=== PATIENT | female | born 1960 | race African-American/Black ===

== ENCOUNTER 2017-12-07 09:05 | Day surgery (SDC) | payer OTHER ==
[2017-12-06 15:12] VITALS: BMI 32.1
[2017-12-07] MEDS ORDERED: PROPOFOL 20 ML ONE (09:42)
[2017-12-07 10:15] VITALS: TEMP 97.9
[2017-12-07 13:42] VITALS: BP 126/60; PULSE 63
== END 2017-12-07 11:25 | disposition home or self-care (01) ==
LOC: JASU-ENDO 09:05
PROVIDERS: ATTEND Internal Medicine Gastroenterology
PROC: 0DJD8ZZ Inspection of Lower Intestinal Tract, Via Natural or Artificial Opening Endoscopic (ICD-10-PCS; principal; 2017-12-07 10:45)
DX: Z12.11 Encounter for screening for malignant neoplasm of colon (principal); Z86.010 Personal history of colon polyps
CPT/HCPCS: 82962

== ENCOUNTER 2018-02-21 17:27 | Inpatient (IN) | payer OTHER ==
--- NOTE | 2018-02-21 17:44 | PDOC ---
Rapid Medical Evaluation Time Seen by Provider: 02/21/18 17:41 Medical Evaluation: Allergies Allergy/AdvReac Type Severity Reaction Status Date / Time No Known Allergies Allergy Verified 12/05/14 19:08 02/21/18 17:41 I have performed a brief in-person evaluation of this patient. The patient presents with a chief complaint of: "walking is not steady and my BP is high" since wednesday, +headache, "when i'm walking i feel like i'm going to fall down", "a little slurred speech yesterday", "i just came from Dr. Grimes's office" Pertinent physical exam findings: no focal neuro deficits I have ordered the following: labs The patient will proceed to the ED for further evaluation. Discharge Disposition - Diagnosis Weakness - Referrals Referrals: Anushka Brown MD [Primary Care Provider] - - Patient Instructions - Post Discharge Activity
[2018-02-21 18:38] LABS: BASO % 1.2 % (0-2.0); EOS % 1.7 % (0-4.5); HEMATOCRIT 40.5 % (32.4-45.2); HEMOGLOBIN 13.2 GM/dL (10.7-15.3); LYMPH % 34.6 % (8-40); MCH 26.8 pg (25.7-33.7); MCHC 32.7 g/dl (32.0-36.0); MEAN CELL VOLUME 81.9 fl (80-96); MEAN PLT VOLUME 8.2 fl (7.5-11.1); MONO % 4.3 % (3.8-10.2); NEUT % 58.2 % (42.8-82.8); PLATELET COUNT 280 K/MM3 (134-434); RBC 4.94 M/mm3 (3.60-5.2); RDW 16.1 % (11.6-15.6); WHITE BLOOD COUNT 9.2 K/mm3 (4.0-10.0)
[2018-02-21 18:46] LABS: INR 0.99 (0.82-1.09); PROTHROMBIN TIME (PATIENT) 11.2 SEC (9.7-13.0)
[2018-02-21 19:26] LABS: ALBUMIN 3.6 g/dl (3.4-5.0); ANION GAP 8 (8-16); BILIRUBIN,TOTAL 0.3 mg/dL (0.2-1.0); BLOOD UREA NITROGEN 15 mg/dL (7-18); CALCIUM 8.7 mg/dL (8.5-10.1); CHLORIDE 107 mmol/L (98-107); CO2 26 mmol/L (21-32); CREATININE 0.8 mg/dL (0.55-1.02); GLUCOSE,RANDOM 124 mg/dL (74-106); POTASSIUM 3.4 mmol/L (3.5-5.1); SGOT/AST 12 U/L (15-37); SGPT/ALT 19 U/L (12-78); SODIUM 141 mmol/L (136-145); TOT PROT 7.4 g/dl (6.4-8.2)
[2018-02-21 19:28] LABS: ALK PHOS 95 U/L (45-117)
--- NOTE | 2018-02-21 20:09 | PDOC ---
History of Present Illness - General History Source: Patient Exam Limitations: No Limitations - History of Present Illness Initial Comments: 02/22/18 00:20 The patient is a 57 year old female, with a significant past medical history of HTN, HLD, DM who presents to the emergency department with loss of balance and speech changes two days ago. Patient reports kneeling down by her bed to pray when she suddenly noticed her speech was slow. Patient walked to the bathroom and felt off balance. Patient reports going to sleep and woke up the next morning with slight improvement of her symptoms. Patient was seen at PCP office however was sent to the ED for further evaluation. Currently in the ED, patient reports she is feeling much better, but notes that when she speaks quickly it seems a bit off. Pt went to her PMDs office today who referred her to the ED for evaluation. Patient denies any weakness, tingling, numbness in extremities. Patient denies any vision changes, blurred vision or double vision. Patient denies chest pain, palpitations, diaphoresis, headache or dizziness. Patient denies fever, chills, abdominal pain, nausea, vomit, diarrhea or constipation. Patient denies dysuria, frequency, urgency or hematuria. Patient denies sick contacts or recent travel. Allergies: NKA Past surgical history: None Social history: denies etoh, smoking, recreational drug use PCP: Dr. Brown <Pushpa Faulkner - Last Filed: 02/22/18 00:20> <Quentin Aponte - Last Filed: 02/22/18 00:45> - General Chief Complaint: CVA/TIA Stated Complaint: SENT BY PCP Time Seen by Provider: 02/21/18 17:41 NIH Stroke Scale - Last Known Well Date/Time & Onset Date Last Known Well: 02/19/18 Time Last Known Well: 19:00 - Initial Evaluation Level of consciousness: Alert Ask patient the month and their age: Answers both correctly Ask patient to open & close eyes; make fist and let go: Obeys both correctly Best gaze (horizontal eye movement): Normal Visual field testing: No visual field loss Facial paresis (Show teeth/raise eyebrows/close eyes tight): Normal symmetrical movement Motor Function: Left Arm: Normal Motor Function: Right Arm: Normal (extends arm 90 (or 45) degrees for 10 seconds without drift Motor Function: Left Leg: Normal (extends leg 30 degrees for 5 seconds without drift) Motor Function: Right Leg: Normal (extends leg 30 degrees for 5 seconds without drift) Limb Ataxia: No ataxia Sensory(Use pinprick test arms,legs,trunk,face/side to side): Normal Best language (Describe picture, name items, read sentences): No Aphasia Dysarthria (read several words): Normal articulation Extinction and Inattention: No abnormality - Total Score NIH Stroke Scale Score: 0 <Quentin Aponte - Last Filed: 02/22/18 00:45> Past History <Pushpa Faulkner - Last Filed: 02/22/18 00:20> - Past Medical History Anemia: No Asthma: Yes Cancer: No Cardiac Disorders: No CVA: No COPD: No CHF: No DVT: No Dementia: No Diabetes: Yes GI Disorders: No Disorders: No HTN: Yes Hypercholesterolemia: No Liver Disease: No Seizures: No Thyroid Disease: No - Surgical History Abdominal Surgery: No Appendectomy: No Cardiac Surgery: No Cholecystectomy: No Lung Surgery: No Neurologic Surgery: No Orthopedic Surgery: No - Immunization History Immunization Up to Date: Yes - Suicide/Smoking/Psychosocial Hx Smoking History: Never smoked Have you smoked in the past 12 months: No Information on smoking cessation initiated: No Hx Alcohol Use: No Drug/Substance Use Hx: No Substance Use Type: None Hx Substance Use Treatment: No <Quentin Aponte - Last Filed: 02/22/18 00:45> - Past Medical History Allergies/Adverse Reactions: Allergies Allergy/AdvReac Type Severity Reaction Status Date / Time No Known Allergies Allergy Verified 02/21/18 17:41 Home Medications: Ambulatory Orders Metoprolol Succinate [Toprol XL -] 200 mg PO BID 12/05/14 Simvastatin [Zocor -] 20 mg PO HS 12/05/14 Sitagliptin Phos/Metformin HCl [Janumet 50-1,000 mg Tablet] 1 tab PO BID Aspirin 81 mg PO DAILY 12/06/17 Canagliflozin [Invokana] 100 mg PO DAILY 12/06/17 Insulin Lispro [Humalog] 8 unit SQ TID 12/06/17 Nifedipine 10 mg PO DAILY 12/06/17 Valsartan 40 mg PO DAILY 12/06/17 Review of Systems - Review of Systems Able to Perform ROS?: Yes Comments:: 02/22/18 00:20 All other systems reviewed and are negative except noted in HPI <Pushpa Faulkner - Last Filed: 02/22/18 00:20> *Physical Exam - Vital Signs Last Vital Signs Temp Pulse Resp BP Pulse Ox 98.0 F 71 18 148/84 100 02/21/18 17:42 02/21/18 17:42 02/21/18 17:42 02/21/18 17:42 02/21/18 17:42 - Physical Exam Comments: 02/22/18 00:20 GENERAL: The patient is awake, alert, and fully oriented, Nontoxic - in no acute distress. HEAD: Normocephalic, atraumatic. EYES: extraocular movements intact, sclera anicteric, conjunctiva clear. ENT: Normal voice, Moist mucous membranes. NECK: Normal range of motion, No JVD LUNGS: Breath sounds equal, clear to auscultation bilaterally. No wheezes, no rhonchi, no rales. HEART: Regular rate and rhythm, normal S1 and S2 without murmur, rub or gallop. ABDOMEN: Soft, nontender, normoactive bowel sounds. No guarding, no rebound. No masses. No CVA tenderness EXTREMITIES: Normal range of motion, no edema. No clubbing or cyanosis. No cords , erythema, or tenderness. NEUROLOGICAL: No facial asymmetry, Normal speech, normal gait. Mental status: The patient is oriented x3.Cranial nerves: Cranial nerves II through XII are intact.Motor: The upper extremities are 5 over 5 in all muscle groups. The lower extremities are 5 over 5 in all muscle groups. No pronator drift.Sensation : Sensation is intact to light touch throughout. Neg romberg Cerebellar: Ypoeja-gaoyoq-usdf is normal in both upper extremities. Heel-knee- bell is normal in both lower extremities.Reflexes: 2+ and symmetric in the upper and lower extremities. Gait: Normal. Heel and toe walking are normal. Tandem gait is normal. PSYCH: Normal mood, normal affect. SKIN: Warm, Dry, normal turgor. <Pushpa Faulkner - Last Filed: 02/22/18 00:20> - Vital Signs Last Vital Signs Temp Pulse Resp BP Pulse Ox 98.0 F 71 18 148/84 100 02/21/18 17:42 02/21/18 17:42 02/21/18 17:42 02/21/18 17:42 02/21/18 17:42 <Quentin Aponte - Last Filed: 02/22/18 00:45> Heart Score/ECG Review - ECG Impressions Comment:: 02/21/18 21:05 Twelve-lead EKG was performed and reviewed by me. There is normal sinus rhythm with a normal rate. Rate of 68 abNormal R wave progression <Quentin Aponte - Last Filed: 02/22/18 00:45> ED Treatment Course - LABORATORY CBC & Chemistry Diagram: 02/21/18 18:17 02/21/18 18:17 - ADDITIONAL ORDERS Additional order review: Laboratory Results 02/21/18 02/21/18 18:17 18:17 PT with INR 11.20 INR 0.99 Sodium 141 Potassium 3.4 L Chloride 107 Carbon Dioxide 26 Anion Gap 8 BUN 15 Creatinine 0.8 Creat Clearance w eGFR > 60 Random Glucose 124 H Calcium 8.7 Total Bilirubin 0.3 AST 12 L ALT 19 Alkaline Phosphatase 95 Creatine Kinase 60 Troponin I < 0.02 Total Protein 7.4 Albumin 3.6 02/21/18 18:17 RBC 4.94 MCV 81.9 MCHC 32.7 RDW 16.1 H MPV 8.2 Neutrophils % 58.2 Lymphocytes % 34.6 Monocytes % 4.3 Eosinophils % 1.7 Basophils % 1.2 <Pushpa Faulkner - Last Filed: 02/22/18 00:20> - LABORATORY CBC & Chemistry Diagram: 02/21/18 18:17 02/21/18 18:17 - ADDITIONAL ORDERS Additional order review: Laboratory Results 02/21/18 02/21/18 18:17 18:17 PT with INR 11.20 INR 0.99 Sodium 141 Potassium 3.4 L Chloride 107 Carbon Dioxide 26 Anion Gap 8 BUN 15 Creatinine 0.8 Creat Clearance w eGFR > 60 Random Glucose 124 H Calcium 8.7 Total Bilirubin 0.3 AST 12 L ALT 19 Alkaline Phosphatase 95 Creatine Kinase 60 Troponin I < 0.02 Total Protein 7.4 Albumin 3.6 02/21/18 18:17 RBC 4.94 MCV 81.9 MCHC 32.7 RDW 16.1 H MPV 8.2 Neutrophils % 58.2 Lymphocytes % 34.6 Monocytes % 4.3 Eosinophils % 1.7 Basophils % 1.2 - RADIOLOGY Radiology Studies Ordered: Category Date Time Status HEAD CT WITHOUT CONTRAST [CT] Stat CT Scan 02/21/18 20:07 Ordered <Quentin Aponte - Last Filed: 02/22/18 00:45> Medical Decision Making - Medical Decision Making 02/21/18 22:[address] Kerns. Awaiting call back. 02/21/18 22:40 Call returned. Patient's case discussed. Consult placed. Will see patient tomorrow. 02/21/18 23: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 Paged Dr. Mcgrath. Discussed patient's case 02/21/18 23:56 Dr. Mcgrath to admit patient for observation. <Pushpa Faulkner - Last Filed: 02/22/18 00:20> - Medical Decision Making 02/21/18 20:10 57y F hx of htn, dm, hl, presents with an episode of feeling off balance and dysarthria on wednesday night extending into wednesday with much improved symptoms today, sent to the ED by her PMD for evaluation. On exam pt has a normal neuro exam. concern for ?posterior event/tia labs ordered from E, will obtain CT will consult neuro A portion of this note was documented by scribe services under my direction. I have reviewed the details of the note, within reason, and agree with the documentation with the following case summary and management plan written by me 02/22/18 00:42 case betzaida naranjo requests admission under dr. reyes service case betzaida kerns - will put consult for him will admit for further management and MRI Case discussed in detail with admitting physician including history, physical exam and ancillary studies. Admitting physician has assumed care for the patient, will follow all pending diagnostics and will complete the evaluation and treatment. <Quentin Aponte - Last Filed: 02/22/18 00:45> *DC/Admit/Observation/Transfer - Attestations Scribe Attestion: 02/22/18 00:20 Documentation prepared by Pushpa Faulkner, acting as medical dermatologist for Quentin Aponte MD <Pushpa Faulkner - Last Filed: 02/22/18 00:20> - Discharge Dispostion Admit: Yes <Quentin Aponte - Last Filed: 02/22/18 00:45> Diagnosis at time of Disposition: Weakness, Dysarthria - Discharge Dispostion Condition at time of disposition: Stable - Referrals Referrals: Anushka Brown MD [Primary Care Provider] - - Patient Instructions - Post Discharge Activity
[2018-02-21] MEDS ORDERED: IBUPROFEN 400 MG TABLET (FP) PO ONE ×2 (21:24→22:23)
[2018-02-22] MEDS ORDERED: ASPIRIN 81 MG CHEWABLE TABLETS PO ONE (00:45)
[2018-02-22] MEDS ORDERED: ASPIRIN 81 MG CHEWABLE TABLETS ONE (00:59)
[2018-02-22 03:47] VITALS: BMI 27.7
--- NOTE | 2018-02-22 09:34 | PN ---
Progress Note, Physician Chief Complaint: Pt sitting in bed No complaints today Dysarthria,weakness improved No weakness,no headache,no chest pain no swallowing problem neurology consult and cardiology consult called Awaiting MRI of brain - Current Medication List Current Medications: Active Medications Aspirin (Ecotrin -) 81 mg PO DAILY [facility] Atorvastatin Calcium (Lipitor -) 20 mg PO HS [facility] Hydrochlorothiazide (Hctz -) 12.5 mg PO DAILY [facility] Metformin HCl (Glucophage -) 1,000 mg PO BID@0700,1630 [facility] Metoprolol Succinate (Toprol Xl -) 200 mg PO DAILY [facility] Nifedipine (Procardia Xl -) 60 mg PO DAILY [facility] Sitagliptin Phosphate (Januvia -) 100 mg PO DAILY@0700 [facility] Valsartan (Diovan -) 320 mg PO DAILY [facility] - Objective Vital Signs: Vital Signs Temperature 98.2 F 02/22/18 06:27 Pulse Rate 77 02/22/18 06:27 Respiratory Rate 20 02/22/18 06:27 Blood Pressure 147/72 02/22/18 06:27 O2 Sat by Pulse Oximetry (%) 100 02/22/18 01:33 Constitutional: Yes: No Distress Eyes: Yes: Conjunctiva Clear HENT: Yes: Atraumatic Neck: Yes: Supple Cardiovascular: Yes: Regular Rate and Rhythm Respiratory: Yes: Regular, CTA Bilaterally Gastrointestinal: Yes: Normal Bowel Sounds, Soft Musculoskeletal: Yes: WNL Extremities: Yes: WNL Edema: No Peripheral Pulses WNL: Yes Neurological: Yes: WNL, Alert, Oriented, Cran Nerves II-XII Intact ...Motor Strength: WNL Psychiatric: Yes: WNL, Alert Labs: CBC, BMP 02/21/18 18:17 02/21/18 18:17 INR, PTT INR 0.99 (0.82-1.09) 02/21/18 18:17 - ....Imaging Chest X-ray: Report Reviewed Cat Scan: Report Reviewed EKG: Report Reviewed Assessment/Plan Dysarthrea improved Weakness improved DM HTN hypercholestrolemia PLAN continue home meds cardiology consult neuro f/u awaiting MRI of brain PT Rpt cmp ASA
--- NOTE | 2018-02-22 09:43 | CONSULT ---
Consult - text type - Consultation Consultation Note: Neurology History of Present Illness The patient is a 57 year old female, with a significant past medical history of HTN, HLD, DM who presents to the emergency department with loss of balance and speech changes two days ago. Patient reports kneeling down by her bed to pray when she suddenly noticed her speech was slow. Patient walked to the bathroom and felt off balance. Patient reports going to sleep and woke up the next morning with slight improvement of her symptoms. Patient was seen at PCP office however was sent to the ED for further evaluation. In the ED, she felt much better, now on the floor and does not have aphasia or dysarthria. Discussed with patient having MRI brain to rule out CVA and she was in agreement. SHe is not taking her daily ASA and advised her to take it daily for cardiovascular primary prevention. Allergies: NKA Past surgical history: None Social history: denies etoh, smoking, recreational drug use PCP: Dr. Brown Past History Anemia: No Asthma: Yes Cancer: No Cardiac Disorders: No CVA: No COPD: No CHF: No DVT: No Dementia: No Diabetes: Yes GI Disorders: No Disorders: No HTN: Yes Hypercholesterolemia: No Liver Disease: No Seizures: No Thyroid Disease: No - Surgical History Abdominal Surgery: No Appendectomy: No Cardiac Surgery: No Cholecystectomy: No Lung Surgery: No Neurologic Surgery: No Orthopedic Surgery: No - Immunization History Immunization Up to Date: Yes - Suicide/Smoking/Psychosocial Hx Smoking History: Never smoked Have you smoked in the past 12 months: No Information on smoking cessation initiated: No Hx Alcohol Use: No Drug/Substance Use Hx: No Substance Use Type: None Hx Substance Use Treatment: No - Past Medical History Allergies/Adverse Reactions: Allergies Allergy/AdvReac Type Severity Reaction Status Date / Time No Known Allergies Allergy Verified 02/21/18 17:41 Home Medications: Ambulatory Orders Metoprolol Succinate [Toprol XL -] 200 mg PO BID 12/05/14 Simvastatin [Zocor -] 20 mg PO HS 12/05/14 Sitagliptin Phos/Metformin HCl [Janumet 50-1,000 mg Tablet] 1 tab PO BID Aspirin 81 mg PO DAILY 12/06/17 Canagliflozin [Invokana] 100 mg PO DAILY 12/06/17 Insulin Lispro [Humalog] 8 unit SQ TID 12/06/17 Nifedipine 10 mg PO DAILY 12/06/17 Valsartan 40 mg PO DAILY 12/06/17 Review of Systems - Review of Systems Able to Perform ROS?: Yes All other systems reviewed and are negative except noted in HPI Patient denies any weakness, tingling, numbness in extremities. Patient denies any vision changes, blurred vision or double vision. Patient denies chest pain, palpitations, diaphoresis, headache or dizziness. Patient denies fever, chills, abdominal pain, nausea, vomit, diarrhea or constipation. Patient denies dysuria, frequency, urgency or hematuria. Patient denies sick contacts or recent travel. *Physical Exam - Vital Signs Temperature 98.2 F 02/22/18 06:27 Pulse Rate 77 02/22/18 06:27 Respiratory Rate 20 02/22/18 06:27 Blood Pressure 147/72 02/22/18 06:27 O2 Sat by Pulse Oximetry (%) 100 02/22/18 01:33 02/22/18 00:20 GENERAL: The patient is awake, alert, and fully oriented, Nontoxic - in no acute distress. HEAD: Normocephalic, atraumatic. EYES: extraocular movements intact, sclera anicteric, conjunctiva clear. ENT: Normal voice, Moist mucous membranes. NECK: Normal range of motion, No JVD LUNGS: Breath sounds equal, clear to auscultation bilaterally. No wheezes, no rhonchi, no rales. HEART: Regular rate and rhythm, normal S1 and S2 without murmur, rub or gallop. ABDOMEN: Soft, nontender, normoactive bowel sounds. No guarding, no rebound. No masses. No CVA tenderness EXTREMITIES: Normal range of motion, no edema. No clubbing or cyanosis. No cords , erythema, or tenderness. NEUROLOGICAL: No facial asymmetry, Normal speech, normal gait. Mental status: The patient is oriented x3.Cranial nerves: Cranial nerves II through XII are intact.Motor: The upper extremities are 5 over 5 in all muscle groups. The lower extremities are 5 over 5 in all muscle groups. No pronator drift.Sensation : Sensation is intact to light touch throughout. Neg romberg Cerebellar: Ehzpuz-tmjcrc-ifcg is normal in both upper extremities. Heel-knee- bell is normal in both lower extremities.Reflexes: 2+ and symmetric in the upper and lower extremities. Gait: Normal. Heel and toe walking are normal. Tandem gait is normal. PSYCH: Normal mood, normal affect. SKIN: Warm, Dry, normal turgor. Laboratory Results 02/21/18 02/21/18 18:17 18:17 PT with INR 11.20 INR 0.99 Sodium 141 Potassium 3.4 L Chloride 107 Carbon Dioxide 26 Anion Gap 8 BUN 15 Creatinine 0.8 Creat Clearance w eGFR > 60 Random Glucose 124 H Calcium 8.7 Total Bilirubin 0.3 AST 12 L ALT 19 Alkaline Phosphatase 95 Creatine Kinase 60 Troponin I < 0.02 Total Protein 7.4 Albumin 3.6 02/21/18 18:17 RBC 4.94 MCV 81.9 MCHC 32.7 RDW 16.1 H MPV 8.2 Neutrophils % 58.2 Lymphocytes % 34.6 Monocytes % 4.3 Eosinophils % 1.7 Basophils % 1.2 - RADIOLOGY CT reviewed, no acute changes noted Medical Decision Making 57 year old female, with a significant past medical history of HTN, HLD, DM who presents to the emergency department with loss of balance and speech changes two days ago. Patient reports kneeling down by her bed to pray when she suddenly noticed her speech was slow. Patient walked to the bathroom and felt off balance. Patient reports going to sleep and woke up the next morning with slight improvement of her symptoms. Patient was seen at PCP office however was sent to the ED for further evaluation. In the ED, she felt much better, now on the floor and does not have aphasia or dysarthria. Discussed with patient having MRI brain to rule out CVA and she was in agreement. SHe is not taking her daily ASA and advised her to take it daily for cardiovascular primary prevention. Monitor blood pressure, maintain < 160/90 for now. Continue Statin. Monitor glucose, maintain euglycemic state. IF MRI negative, then likely for discharge but should take daily ASA 81mg and follow all stroke prevention measures.
[2018-02-22 09:52] LABS: CHOLESTEROL 110 mg/dL (50-200); HDL CHOLESTEROL 44 mg/dL (40-60); TRIGLYCERIDES 106 mg/dL (35-160)
--- NOTE | 2018-02-22 09:58 | HP ---
DATE OF ADMISSION: 02/22/2018 Patient is a 57-year-old female with a history of hypertension, diabetes, and hyperlipidemia, referred to the emergency room with a history of slurred speech and unsteady gait noticed since 2 days. As per the patient, she has noticed some slurring of the speech since Wednesday and feeling like weak and off balance while she was walking to the bathroom, noticed since 2 days. Mild headache. No history of blurry vision. No history of chest pain. No palpitations. No history of any swallowing problem. No vision problem. No nausea. No vomiting. Since the symptoms were more in the first 2 days, then it improved, she came to the primary physician's office for checking the BP, and in the PMD's office, the blood pressure was 150/ 100, but the neurological exam was normal and sent the patient to the emergency room for further evaluation. Patient had no symptoms in the emergency room. PAST MEDICAL HISTORY: History of diabetes, hypertension, hyperlipidemia. ALLERGIES: No known drug allergy. MEDICATIONS: She is on metoprolol succinate 200 mg daily, valsartan 320 mg daily, hydrochlorothiazide 12.5 mg daily, Janumet p.o. b.i.d., Invokana 100 mg daily, simvastatin 20 mg daily, nifedipine ER 60 mg daily, and Humalog ___8__ units t.i.d. SOCIAL HISTORY: Lives with the family. REVIEW OF SYSTEMS: As mentioned before. General: No tiredness. No weakness. Speech normal. Head and Neck: Normal. Chest: No history of shortness of breath or cough. Cardiovascular: No shortness of breath. No chest pain. No palpitations. Gastrointestinal: Nothing significant. Musculoskeletal: Nothing significant. Neurological: History of slurred speech and feeling of losing balance when she walks. PHYSICAL EXAMINATION: Vital Signs: On examination of the patient in the emergency room, temperature 98, pulse rate 71, respirations 18, blood pressure 148/84, saturation 100%. Head and Neck: Normal. Neck supple. No JVD. Chest: Clear. Cardiovascular: First and second sound normal. Abdomen: Soft. No tenderness. No distention. Bowel sounds present. Extremities: No edema. Central Nervous System: Alert, oriented x3. No apparent distress. Cranial nerves 2-12 normal. No apparent motor or sensory deficit. Reflexes normal. Romberg sign negative. Ambulating normally. LABORATORY DATA: EKG normal sinus rhythm, [address] or T-wave changes. CBC normal. CMP: Potassium 3.4. Rest of the CMP is normal. AST and ALT normal. Alkaline phosphatase 95. Cardiac enzymes negative. X-ray chest: No infiltrate. CAT scan of the head negative. Admitting diagnosis Dysarthria,Imbalance in gait TIA,R/o stroke,CVA Patient admitted in the telemetry for observation. Neurology and cardiology consult called. PLAN: MRI of the brain, continue the home medications. Physical therapy ordered. Aspirin 81 mg p.o. daily. We will observe the patient. Patient stable on the floor. Jose Armando [id number] MTDD
--- NOTE | 2018-02-22 10:17 | EKG ---
Test Reason : Blood Pressure : / mmHG Vent. Rate : 068 BPM Atrial Rate : 068 BPM P-R Int : 172 ms QRS Dur : 094 ms QT Int : 420 ms P-R-T Axes : 064 226 044 degrees QTc Int : 446 ms NORMAL SINUS RHYTHM POSSIBLE LEFT ATRIAL ENLARGEMENT RIGHT SUPERIOR AXIS DEVIATION SEPTAL INFARCT , AGE UNDETERMINED ABNORMAL ECG WHEN COMPARED WITH ECG OF 05-DEC-2014 21:19, QUESTIONABLE CHANGE IN QRS AXIS Confirmed by MD JEM, LILLIAN ([id number]) on 02/22/2018 10:16:51 AM Referred By: Confirmed By:LILLIAN PARISH MD
[2018-02-22] MEDS: HYDROCHLOROTHIAZIDE 12.5 MG CAPSULE (FP) PO SCH (11:24)
[2018-02-22] MEDS: NIFEdipine E.R 60 MG TABLET (UD) PO SCH (11:24)
[2018-02-22] MEDS: VALSARTAN 160 MG TABLET (UD) PO SCH (11:24)
[2018-02-22] MEDS: ASPIRIN COATED 81 MG TABLET.EC PO SCH (11:24)
[2018-02-22 13:18] LABS: ALBUMIN 3.4 g/dl (3.4-5.0); ANION GAP 7 (8-16); BILIRUBIN,TOTAL 0.4 mg/dL (0.2-1.0); BLOOD UREA NITROGEN 13 mg/dL (7-18); CALCIUM 8.6 mg/dL (8.5-10.1); CHLORIDE 109 mmol/L (98-107); CO2 26 mmol/L (21-32); CREATININE 0.6 mg/dL (0.55-1.02); GLUCOSE,RANDOM 107 mg/dL (74-106); POTASSIUM 3.4 mmol/L (3.5-5.1); SGOT/AST 13 U/L (15-37); SGPT/ALT 18 U/L (12-78); SODIUM 142 mmol/L (136-145)
[2018-02-22 13:19] LABS: ALK PHOS 89 U/L (45-117); TOT PROT 6.8 g/dl (6.4-8.2)
[2018-02-22] MEDS: metFORMIN HCL 500 MG TABLET (FP) PO SCH (16:50)
--- NOTE | 2018-02-22 19:10 | CON.CARD ---
Consult Consult Specialty:: Cardiology Referred by:: Dr. Brown Reason for Consultation:: Cardiac evaluation - History of Present Illness Chief Complaint: Weakness, unsteady gait History of Present Illness: Patient is a 57 year old female with underlying history of hypertension, hypercholesterolemia and diabetes mellitus who presented with loss of balance and speech changes for the past 2 days. She was kneeling down to pray when she noticed her speech was slow. She developed unsteady gait which prompted her to come in to ED. She denies chest pain, shortness of breath or palpitations. She denies paroxysmal nocturnal dyspnea or orthopnea. She denies fever or chills. She denies nausea, vomiting, diarrhea or abdominal pain. She denies headache or dizziness. She feels better today. She is alert and oriented. Denies any syncopal episodes. - History Source History Provided By: Patient, Medical Record Limitations to Obtaining History: No Limitations - Past Medical History Cardio/Vascular: Yes: HTN, Hyperlipdemia Endocrine: Yes: Diabetes Mellitus - Past Surgical History Past Surgical History: Yes: None - Alcohol/Substance Use Hx Alcohol Use: No - Smoking History Smoking history: Never smoked Have you smoked in the past 12 months: No Home Medications - Allergies Allergies/Adverse Reactions: Allergies Allergy/AdvReac Type Severity Reaction Status Date / Time No Known Allergies Allergy Verified 02/21/18 17:41 - Home Medications Home Medications: Ambulatory Orders Metoprolol Succinate [Toprol XL -] 200 mg PO BID 12/05/14 Simvastatin [Zocor -] 20 mg PO HS 12/05/14 Sitagliptin Phos/Metformin HCl [Janumet 50-1,000 mg Tablet] 1 tab PO BID Aspirin 81 mg PO DAILY 12/06/17 Canagliflozin [Invokana] 100 mg PO DAILY 12/06/17 Insulin Lispro [Humalog] 8 unit SQ TID 12/06/17 Nifedipine 10 mg PO DAILY 12/06/17 Valsartan 40 mg PO DAILY 12/06/17 Review of Systems - Review of Systems Constitutional: denies: Chills, Fever Cardiovascular: denies: Chest Pain, Palpitations, Shortness of Breath Respiratory: denies: Cough, Hemoptysis, Orthopnea, PND, SOB on Exertion Gastrointestinal: denies: Abdominal Pain, Constipation, Diarrhea, Melena, Nausea , Rectal Bleeding, Vomiting Neurological: reports: Unsteady Gait, Weakness. denies: Dizziness, Headache, Numbness, Seizure, Syncope Vital Signs: Vital Signs Temperature 98.8 F 02/22/18 14:32 Pulse Rate 71 02/22/18 14:32 Respiratory Rate 20 02/22/18 17:15 Blood Pressure 160/79 02/22/18 14:32 O2 Sat by Pulse Oximetry (%) 100 02/22/18 17:15 Eyes: Yes: PERRL HENT: Yes: Atraumatic Neck: Yes: Supple Respiratory: Yes: CTA Bilaterally Gastrointestinal: Yes: Normal Bowel Sounds, Soft. No: Tenderness Cardiovascular: Yes: Regular Rate and Rhythm JVD: No Carotid Bruit: No PMI: Non-Displaced Heart Sounds: Yes: S1, S2. No: Gallop Edema: No - Other Data Labs, Other Data: CBC, BMP 02/21/18 18:17 02/22/18 08:50 INR, PTT INR 0.99 (0.82-1.09) 02/21/18 18:17 Troponin, BNP 02/21/18 18:17 Troponin I < 0.02 Laboratory Results - last 24 hr 02/21/18 02/22/18 02/22/18 18:17 06:33 08:50 Sodium 141 Potassium 3.4 L Chloride 107 Carbon Dioxide 26 Anion Gap 8 BUN 15 Creatinine 0.8 Creat Clearance w eGFR > 60 POC Glucometer 105 Random Glucose 124 H Calcium 8.7 Total Bilirubin 0.3 AST 12 L ALT 19 Alkaline Phosphatase 95 Creatine Kinase 60 Troponin I < 0.02 Total Protein 7.4 Albumin 3.6 Triglycerides 106 Cholesterol 110 Total LDL Cholesterol 57 HDL Cholesterol 44 02/22/18 08:50 Sodium 142 Potassium 3.4 L Chloride 109 H Carbon Dioxide 26 Anion Gap 7 L BUN 13 Creatinine 0.6 Creat Clearance w eGFR > 60 POC Glucometer Random Glucose 107 H Calcium 8.6 Total Bilirubin 0.4 D AST 13 L ALT 18 Alkaline Phosphatase 89 Creatine Kinase Troponin I Total Protein 6.8 Albumin 3.4 Triglycerides Cholesterol Total LDL Cholesterol HDL Cholesterol Sinus rhythm, low voltage Echo: Pending Imaging - Results Chest X-ray: Report Reviewed (Large heart, elevated diaphragm) Cat Scan: Report Reviewed (Head CT noted) MRI: Pending (Brain MRI) EKG: Report Reviewed Problem List - Problems (1) Unsteady gait Code(s): R26.81 - UNSTEADINESS ON FEET (2) TIA (transient ischemic attack) Code(s): G45.9 - TRANSIENT CEREBRAL ISCHEMIC ATTACK, UNSPECIFIED (3) HTN (hypertension) Code(s): I10 - ESSENTIAL (PRIMARY) HYPERTENSION (4) Hypercholesterolemia Code(s): E78.00 - PURE HYPERCHOLESTEROLEMIA, UNSPECIFIED (5) Diabetes mellitus Code(s): E11.9 - TYPE 2 DIABETES MELLITUS WITHOUT COMPLICATIONS Assessment/Plan 1. Clinical presentation suggests TIA 2. Hypertension 3. Hypercholesterolemia 4. Diabetes Mellitus PLAN: 1. Continue Metoprolol, Valsartan, HCTZ and Procardia XL as tolerated 2. ASA 3. Statin therapy 4. Transthoracic echocardiography to assess LV/RV and valvular function 5. Neuro follow up. Brain MRI pending Further plans are to follow German Shau MD
[2018-02-22] MEDS: ATORVASTATIN CA 20 MG TABLET (FP) PO SCH (21:06)
[2018-02-23] MEDS: metFORMIN HCL 500 MG TABLET (FP) PO SCH ×2 (06:30→17:10)
[2018-02-23] MEDS: sitaGLIPtin PHOSPHATE 100 MG TABLET (FP) PO SCH (06:30)
[2018-02-23] MEDS: ASPIRIN COATED 81 MG TABLET.EC PO SCH (09:27)
[2018-02-23] MEDS: HYDROCHLOROTHIAZIDE 12.5 MG CAPSULE (FP) PO SCH (09:28)
[2018-02-23] MEDS: NIFEdipine E.R 60 MG TABLET (UD) PO SCH (09:28)
[2018-02-23] MEDS: VALSARTAN 160 MG TABLET (UD) PO SCH (09:28)
--- NOTE | 2018-02-23 09:29 | PN ---
Progress Note, Physician Chief Complaint: Pt sitting in bed No complaints today Dysarthria,weakness improved No weakness,no headache,no chest pain no swallowing problem neurology consult and cardiology consult appreciated MRI of brain report noted,shows LT acute/subacute pontine lacunar infarct, microvascular ischemic changes,volume loss,no acute ICH carotid doppler shows no stenosis - Current Medication List Current Medications: Active Medications Aspirin (Ecotrin -) 81 mg PO DAILY [facility] Last Admin: 02/22/18 11:24 Dose: 81 mg Atorvastatin Calcium (Lipitor -) 20 mg PO HS [facility] Last Admin: 02/22/18 21:06 Dose: 20 mg Hydrochlorothiazide (Hctz -) 12.5 mg PO DAILY [facility] Last Admin: 02/22/18 11:24 Dose: 12.5 mg Metformin HCl (Glucophage -) 1,000 mg PO BID@0700,1630 [facility] Last Admin: 02/23/18 06:30 Dose: Not Given Metoprolol Succinate (Toprol Xl -) 200 mg PO DAILY [facility] Last Admin: 02/22/18 11:24 Dose: 200 mg Nifedipine (Procardia Xl -) 60 mg PO DAILY [facility] Last Admin: 02/22/18 11:24 Dose: 60 mg Potassium Chloride (K-Dur -) 40 meq PO ONCE ONE Stop: 02/23/18 09:22 Sitagliptin Phosphate (Januvia -) 100 mg PO DAILY@0700 [facility] Last Admin: 02/23/18 06:30 Dose: Not Given Valsartan (Diovan -) 320 mg PO DAILY [facility] Last Admin: 02/22/18 11:24 Dose: 320 mg - Objective Vital Signs: Vital Signs Temperature 98.1 F 02/23/18 05:00 Pulse Rate 69 02/23/18 05:00 Respiratory Rate 18 02/23/18 05:00 Blood Pressure 129/69 02/23/18 05:00 O2 Sat by Pulse Oximetry (%) 97 02/22/18 20:29 Constitutional: Yes: No Distress Eyes: Yes: Conjunctiva Clear HENT: Yes: Atraumatic Neck: Yes: Supple Cardiovascular: Yes: Regular Rate and Rhythm Respiratory: Yes: Regular, CTA Bilaterally Gastrointestinal: Yes: Normal Bowel Sounds Musculoskeletal: Yes: WNL Extremities: Yes: WNL Edema: No Peripheral Pulses WNL: Yes Neurological: Yes: WNL, Alert, Oriented, Cran Nerves II-XII Intact ...Motor Strength: WNL, LUE, LLE, RUE, RLE Psychiatric: Yes: WNL, Alert Labs: CBC, BMP 02/21/18 18:17 02/22/18 08:50 INR, PTT INR 0.99 (0.82-1.09) 02/21/18 18:17 - ....Imaging MRI: Report Reviewed Assessment/Plan CVA,stroke Dysarthrea improved Weakness improved DM HTN hypercholestrolemia PLAN continue home meds cardiology f/u neuro f/u PT Rpt cmp ASA K suppliment echo today
--- NOTE | 2018-02-23 10:09 | PN ---
Progress Note (short form) - Note Progress Note: Neurology History of Present Illness The patient is a 57 year old female, with a significant past medical history of HTN, HLD, DM who presents to the emergency department with loss of balance and speech changes two days ago. Patient reports kneeling down by her bed to pray when she suddenly noticed her speech was slow. Patient walked to the bathroom and felt off balance. Patient reports going to sleep and woke up the next morning with slight improvement of her symptoms. Patient was seen at PCP office however was sent to the ED for further evaluation. In the ED, she felt much better, and completed MRI brain overnight which showed L pontine infarct, acute to subacute. She admits to not taking ASA daily and has been not compliant with the medication. Extensive conversation about medication compliance, not just for ASA 81mg but for HTN, DM medications as well. She was in agreement. Was having Echo at time of visit. Carotids completed and reivewed and did not show HD significant stenosis. Active Medications Aspirin (Ecotrin -) 81 mg PO DAILY [facility] Last Admin: 02/23/18 09:27 Dose: 81 mg Atorvastatin Calcium (Lipitor -) 20 mg PO HS [facility] Last Admin: 02/22/18 21:06 Dose: 20 mg Hydrochlorothiazide (Hctz -) 12.5 mg PO DAILY [facility] Last Admin: 02/23/18 09:28 Dose: 12.5 mg Metformin HCl (Glucophage -) 1,000 mg PO BID@0700,1630 [facility] Last Admin: 02/23/18 06:30 Dose: Not Given Metoprolol Succinate (Toprol Xl -) 200 mg PO DAILY [facility] Last Admin: 02/23/18 09:28 Dose: 200 mg Nifedipine (Procardia Xl -) 60 mg PO DAILY [facility] Last Admin: 02/23/18 09:28 Dose: 60 mg Potassium Chloride (K-Dur -) 40 meq PO ONCE ONE Stop: 02/23/18 10:31 Sitagliptin Phosphate (Januvia -) 100 mg PO DAILY@0700 [facility] Last Admin: 02/23/18 06:30 Dose: Not Given Valsartan (Diovan -) 320 mg PO DAILY [facility] Last Admin: 02/23/18 09:28 Dose: 320 mg *Physical Exam - Vital Signs Temperature 97.9 F 02/23/18 09:00 Pulse Rate 68 02/23/18 09:00 Respiratory Rate 18 02/23/18 09:00 Blood Pressure 144/97 02/23/18 09:00 O2 Sat by Pulse Oximetry (%) 97 02/22/18 20:29 02/22/18 00:20 GENERAL: The patient is awake, alert, and fully oriented, Nontoxic - in no acute distress. HEAD: Normocephalic, atraumatic. EYES: extraocular movements intact, sclera anicteric, conjunctiva clear. ENT: Normal voice, Moist mucous membranes. NECK: Normal range of motion, No JVD LUNGS: Breath sounds equal, clear to auscultation bilaterally. No wheezes, no rhonchi, no rales. HEART: Regular rate and rhythm, normal S1 and S2 without murmur, rub or gallop. ABDOMEN: Soft, nontender, normoactive bowel sounds. No guarding, no rebound. No masses. No CVA tenderness EXTREMITIES: Normal range of motion, no edema. No clubbing or cyanosis. No cords , erythema, or tenderness. NEUROLOGICAL: No facial asymmetry, Normal speech, normal gait. Mental status: The patient is oriented x3.Cranial nerves: Cranial nerves II through XII are intact.Motor: The upper extremities are 5 over 5 in all muscle groups. The lower extremities are 5 over 5 in all muscle groups. No pronator drift.Sensation : Sensation is intact to light touch throughout. Neg romberg Cerebellar: [id number]-[id number] is normal in both upper extremities. Heel-knee- bell is normal in both lower extremities.Reflexes: 2+ and symmetric in the upper and lower extremities. Gait: Normal. Heel and toe walking are normal. Tandem gait is normal. PSYCH: Normal mood, normal affect. SKIN: Warm, Dry, normal turgor. CBCD WBC 9.2 K/mm3 (4.0-10.0) 02/21/18 18: RBC 4.94 M/mm3 (3.60-5.2) 02/21/18 18:17 Hgb 13.2 GM/dL (10.7-15.3) 02/21/18 18:17 Hct 40.5 % (32.4-45.2) 02/21/18 18: MCV 81.9 fl (80-96) 02/21/18 18:17 MCHC 32.7 g/dl (32.0-36.0) 02/21/18 18:17 RDW 16.1 % (11.6-15.6) H 02/21/18 18:17 Plt Count 280 K/MM3 (134-434) 02/21/18 18:17 MPV 8.2 fl (7.5-11.1) 02/21/18 18:17 CMP Sodium 142 mmol/L (136-145) 02/22/18 08:50 Potassium 3.4 mmol/L (3.5-5.1) L 02/22/18 08:50 Chloride 109 mmol/L (98-107) H 02/22/18 08:50 Carbon Dioxide 26 mmol/L (21-32) 02/22/18 08:50 Anion Gap 7 (8-16) L 02/22/18 08:50 BUN 13 mg/dL (7-18) 02/22/18 08:50 Creatinine 0.6 mg/dL (0.55-1.02) 02/22/18 08:50 Creat Clearance w eGFR > 60 (>60) 02/22/18 08:50 Calcium 8.6 mg/dL (8.5-10.1) 02/22/18 08:50 Total Bilirubin 0.4 mg/dL (0.2-1.0) D 02/22/18 08:50 AST 13 U/L (15-37) L 02/22/18 08:50 ALT 18 U/L (12-78) 02/22/18 08:50 Alkaline Phosphatase 89 U/L (45-117) 02/22/18 08:50 Total Protein 6.8 g/dl (6.4-8.2) 02/22/18 08:50 Albumin 3.4 g/dl (3.4-5.0) 02/22/18 08:50 - RADIOLOGY CT reviewed, no acute changes noted MRI brain reviewed, L pontine infarct noted Carotid doppler reviewed Medical Decision Making 57 year old female, with a significant past medical history of HTN, HLD, DM who presents to the emergency department with loss of balance and speech changes two days ago. Patient reports kneeling down by her bed to pray when she suddenly noticed her speech was slow. Patient walked to the bathroom and felt off balance. Patient reports going to sleep and woke up the next morning with slight improvement of her symptoms. Patient was seen at PCP office however was sent to the ED for further evaluation. In the ED, she felt much better, now on the floor and does not have aphasia or dysarthria. MRI brain reviewed, L wilman infarct noted, acute to subacute SHe is not taking her daily ASA and advised her to take it daily for cardiovascular primary prevention. Monitor blood pressure, maintain < 160/90 for now. Carotid doppler without HD significant stenosis Echo Pending report, being completed during my visit Continue Statin, LDL 44, can continue. Monitor glucose, maintain euglycemic state Medication compliance discussed in detail Likely for outpatient rehab based on minimal deficits Discussed with patient and PCP in detail
--- NOTE | 2018-02-23 10:23 | PN ---
Progress Note, Physician History of Present Illness: Dysarthria and balance disturbance improving. Brain MRI shows left pontine stroke. - Current Medication List Current Medications: Active Medications Aspirin (Ecotrin -) 81 mg PO DAILY [facility] Last Admin: 02/23/18 09:27 Dose: 81 mg Atorvastatin Calcium (Lipitor -) 20 mg PO HS [facility] Last Admin: 02/22/18 21:06 Dose: 20 mg Hydrochlorothiazide (Hctz -) 12.5 mg PO DAILY [facility] Last Admin: 02/23/18 09:28 Dose: 12.5 mg Metformin HCl (Glucophage -) 1,000 mg PO BID@0700,1630 [facility] Last Admin: 02/23/18 06:30 Dose: Not Given Metoprolol Succinate (Toprol Xl -) 200 mg PO DAILY [facility] Last Admin: 02/23/18 09:28 Dose: 200 mg Nifedipine (Procardia Xl -) 60 mg PO DAILY [facility] Last Admin: 02/23/18 09:28 Dose: 60 mg Potassium Chloride (K-Dur -) 40 meq PO ONCE ONE Stop: 02/23/18 10:31 Sitagliptin Phosphate (Januvia -) 100 mg PO DAILY@0700 [facility] Last Admin: 02/23/18 06:30 Dose: Not Given Valsartan (Diovan -) 320 mg PO DAILY [facility] Last Admin: 02/23/18 09:28 Dose: 320 mg - Objective Vital Signs: Vital Signs Temperature 97.9 F 02/23/18 09:00 Pulse Rate 68 02/23/18 09:00 Respiratory Rate 18 02/23/18 09:00 Blood Pressure 144/97 02/23/18 09:00 O2 Sat by Pulse Oximetry (%) 97 02/22/18 20:29 Constitutional: Yes: No Distress, Calm Neck: Yes: Supple Cardiovascular: Yes: Regular Rate and Rhythm Respiratory: Yes: Regular, CTA Bilaterally Gastrointestinal: Yes: Normal Bowel Sounds, Soft Edema: No Labs: CBC, BMP 02/21/18 18:17 02/22/18 08:50 INR, PTT INR 0.99 (0.82-1.09) 02/21/18 18:17 - ....Imaging EKG: Report Reviewed (Tele: SR, no PAF) Problem List - Problems (1) Left pontine stroke Code(s): I63.50 - CEREB INFRC DUE TO UNSP OCCLS OR STENOS OF UNSP CEREB ARTERY (2) Diabetes mellitus Code(s): E11.9 - TYPE 2 DIABETES MELLITUS WITHOUT COMPLICATIONS Qualifiers: Diabetes mellitus type: type 2 (3) HTN (hypertension) Code(s): I10 - ESSENTIAL (PRIMARY) HYPERTENSION Qualifiers: Hypertension type: essential hypertension Qualified Code(s): I10 - Essential (primary) hypertension (4) Hypercholesterolemia Code(s): E78.00 - PURE HYPERCHOLESTEROLEMIA, UNSPECIFIED (5) Unsteady gait Code(s): R26.81 - UNSTEADINESS ON FEET (6) Dysarthria Code(s): R47.1 - DYSARTHRIA AND ANARTHRIA Assessment/Plan 1. Acute/subacute left pontine stroke resolving 2. Hypertension 3. Hypercholesterolemia 4. Type 2 Diabetes Mellitus PLAN: 1. Continue ASA 81 qd, Lipitor 20 qhs, Metoprolol XL 200 qd, Valsartan-HCTZ 320/ 12.5 qd and Procardia XL 60 qd as hemodynamics tolerate, replete K as you are 2. F/u transthoracic echocardiography to assess LV/RV and valvular function 3. Neuro input appreciated, outpatient rehab recommended 4. Repeat brain imaging planned
[2018-02-23] MEDS ORDERED: POTASSIUM CHLORIDE TABS 20 MEQ TABLET.ER (FP) PO ONE (10:30)
[2018-02-23] MEDS: ATORVASTATIN CA 20 MG TABLET (FP) PO SCH (21:31)
[2018-02-24 05:45] VITALS: TEMP 97.8
[2018-02-24] MEDS: sitaGLIPtin PHOSPHATE 100 MG TABLET (FP) PO SCH (06:16)
[2018-02-24] MEDS: metFORMIN HCL 500 MG TABLET (FP) PO SCH (06:16)
[2018-02-24 07:13] LABS: ALBUMIN 3.3 g/dl (3.4-5.0); ANION GAP 9 (8-16); BLOOD UREA NITROGEN 22 mg/dL (7-18); CALCIUM 8.7 mg/dL (8.5-10.1); CHLORIDE 106 mmol/L (98-107); CO2 26 mmol/L (21-32); CREATININE 0.7 mg/dL (0.55-1.02); GLUCOSE,RANDOM 184 mg/dL (74-106); POTASSIUM 3.6 mmol/L (3.5-5.1); SGOT/AST 11 U/L (15-37); SGPT/ALT 18 U/L (12-78); SODIUM 141 mmol/L (136-145)
[2018-02-24 07:16] LABS: ALK PHOS 89 U/L (45-117); BILIRUBIN,TOTAL 0.2 mg/dL (0.2-1.0); TOT PROT 6.7 g/dl (6.4-8.2)
[2018-02-24 08:27] VITALS: BP 142/54; PULSE 71
--- NOTE | 2018-02-24 09:12 | PN ---
Progress Note, Physician History of Present Illness: Dysarthria and balance disturbance improving. Brain MRI shows left pontine stroke. - Current Medication List Current Medications: Active Medications Aspirin (Ecotrin -) 81 mg PO DAILY [facility] Last Admin: 02/23/18 09:27 Dose: 81 mg Atorvastatin Calcium (Lipitor -) 20 mg PO HS [facility] Last Admin: 02/23/18 21:31 Dose: 20 mg Hydrochlorothiazide (Hctz -) 12.5 mg PO DAILY [facility] Last Admin: 02/23/18 09:28 Dose: 12.5 mg Metformin HCl (Glucophage -) 1,000 mg PO BID@0700,1630 [facility] Last Admin: 02/24/18 06:16 Dose: Not Given Metoprolol Succinate (Toprol Xl -) 200 mg PO DAILY [facility] Last Admin: 02/23/18 09:28 Dose: 200 mg Nifedipine (Procardia Xl -) 60 mg PO DAILY [facility] Last Admin: 02/23/18 09:28 Dose: 60 mg Sitagliptin Phosphate (Januvia -) 100 mg PO DAILY@0700 [facility] Last Admin: 02/24/18 06:16 Dose: Not Given Valsartan (Diovan -) 320 mg PO DAILY [facility] Last Admin: 02/23/18 09:28 Dose: 320 mg - Objective Vital Signs: Vital Signs Temperature 97.8 F 02/24/18 08:24 Pulse Rate 71 02/24/18 08:24 Respiratory Rate 18 02/24/18 08:24 Blood Pressure 142/54 02/24/18 08:24 O2 Sat by Pulse Oximetry (%) 97 02/22/18 20:29 Constitutional: Yes: No Distress, Calm Neck: Yes: Supple Cardiovascular: Yes: Regular Rate and Rhythm Respiratory: Yes: Regular, CTA Bilaterally Gastrointestinal: Yes: Normal Bowel Sounds, Soft, Abdomen, Obese Edema: No Labs: CBC, BMP 02/21/18 18:17 02/24/18 06:20 INR, PTT INR 0.99 (0.82-1.09) 02/21/18 18:17 - ....Imaging EKG: Report Reviewed (Tele: SR) Problem List - Problems (1) Left pontine stroke Code(s): I63.50 - CEREB INFRC DUE TO UNSP OCCLS OR STENOS OF UNSP CEREB ARTERY (2) Diabetes mellitus Code(s): E11.9 - TYPE 2 DIABETES MELLITUS WITHOUT COMPLICATIONS Qualifiers: Diabetes mellitus type: type 2 (3) HTN (hypertension) Code(s): I10 - ESSENTIAL (PRIMARY) HYPERTENSION Qualifiers: Hypertension type: essential hypertension Qualified Code(s): I10 - Essential (primary) hypertension (4) Hypercholesterolemia Code(s): E78.00 - PURE HYPERCHOLESTEROLEMIA, UNSPECIFIED (5) Unsteady gait Code(s): R26.81 - UNSTEADINESS ON FEET (6) Dysarthria Code(s): R47.1 - DYSARTHRIA AND ANARTHRIA Assessment/Plan 02/23/2018 Echo: Normal LV size and fxn, tr MR 1. Acute/subacute left pontine stroke resolving 2. Hypertension 3. Hypercholesterolemia 4. Type 2 Diabetes Mellitus PLAN: 1. Continue ASA 81 qd, Lipitor 20 qhs, Metoprolol XL 200 qd, Valsartan-HCTZ 320/ 12.5 qd and Procardia XL 60 qd as hemodynamics tolerate, replete K as you are 2. D/c planning with f/u in office [phone], outpatient rehab recommended
[2018-02-24] MEDS: ASPIRIN COATED 81 MG TABLET.EC PO SCH (09:19)
[2018-02-24] MEDS: VALSARTAN 160 MG TABLET (UD) PO SCH (09:19)
[2018-02-24] MEDS: NIFEdipine E.R 60 MG TABLET (UD) PO SCH (09:20)
--- NOTE | 2018-02-24 09:22 | PN ---
Progress Note (short form) - Note Progress Note: Neurology History of Present Illness The patient is a 57 year old female, with a significant past medical history of HTN, HLD, DM who presents to the emergency department with loss of balance and speech changes two days ago. Patient reports kneeling down by her bed to pray when she suddenly noticed her speech was slow. Patient walked to the bathroom and felt off balance. Patient reports going to sleep and woke up the next morning with slight improvement of her symptoms. Patient was seen at PCP office however was sent to the ED for further evaluation. In the ED, she felt much better, and completed MRI brain overnight which showed L pontine infarct, acute to subacute. She admits to not taking ASA daily and has been not compliant with the medication. Extensive conversation about medication compliance, not just for ASA 81mg but for HTN, DM medications as well. She was in agreement. Carotids completed and reivewed and did not show HD significant stenosis. Echo reviewed and with normal wall motion, normal EF. Discussed with patient and PCP , plan is for discharge today. Active Medications Aspirin (Ecotrin -) 81 mg PO DAILY [facility] Last Admin: 02/23/18 09:27 Dose: 81 mg Atorvastatin Calcium (Lipitor -) 20 mg PO HS [facility] Last Admin: 02/23/18 21:31 Dose: 20 mg Hydrochlorothiazide (Hctz -) 12.5 mg PO DAILY [facility] Last Admin: 02/23/18 09:28 Dose: 12.5 mg Metformin HCl (Glucophage -) 1,000 mg PO BID@0700,1630 [facility] Last Admin: 02/24/18 06:16 Dose: Not Given Metoprolol Succinate (Toprol Xl -) 200 mg PO DAILY [facility] Last Admin: 02/23/18 09:28 Dose: 200 mg Nifedipine (Procardia Xl -) 60 mg PO DAILY [facility] Last Admin: 02/23/18 09:28 Dose: 60 mg Sitagliptin Phosphate (Januvia -) 100 mg PO DAILY@0700 [facility] Last Admin: 02/24/18 06:16 Dose: Not Given Valsartan (Diovan -) 320 mg PO DAILY [facility] Last Admin: 02/23/18 09:28 Dose: 320 mg *Physical Exam - Vital Signs Period Temp Pulse Resp BP Sys/[place] Pulse Ox Last 24 Hr 97.8 F-98.6 F 68-84 18-20 117-152/51-70 02/22/18 00:20 GENERAL: The patient is awake, alert, and fully oriented, Nontoxic - in no acute distress. HEAD: Normocephalic, atraumatic. EYES: extraocular movements intact, sclera anicteric, conjunctiva clear. ENT: Normal voice, Moist mucous membranes. NECK: Normal range of motion, No JVD LUNGS: Breath sounds equal, clear to auscultation bilaterally. No wheezes, no rhonchi, no rales. HEART: Regular rate and rhythm, normal S1 and S2 without murmur, rub or gallop. ABDOMEN: Soft, nontender, normoactive bowel sounds. No guarding, no rebound. No masses. No CVA tenderness EXTREMITIES: Normal range of motion, no edema. No clubbing or cyanosis. No cords , erythema, or tenderness. NEUROLOGICAL: No facial asymmetry, Normal speech, normal gait. Mental status: The patient is oriented x3.Cranial nerves: Cranial nerves II through XII are intact.Motor: The upper extremities are 5 over 5 in all muscle groups. The lower extremities are 5 over 5 in all muscle groups. No pronator drift.Sensation : Sensation is intact to light touch throughout. Neg romberg Cerebellar: Mmuklt-[id number] is normal in both upper extremities. Heel-knee- bell is normal in both lower extremities.Reflexes: 2+ and symmetric in the upper and lower extremities. Gait: Normal. Heel and toe walking are normal. Tandem gait is normal. PSYCH: Normal mood, normal affect. SKIN: Warm, Dry, normal turgor. CBCD WBC 9.2 K/mm3 (4.0-10.0) 02/21/18 18: RBC 4.94 M/mm3 (3.60-5.2) 02/21/18 18: Hgb 13.2 GM/dL (10.7-15.3) 02/21/18 18: Hct 40.5 % (32.4-45.2) 02/21/18 18: MCV 81.9 fl (80-96) 02/21/18 18: MCHC 32.7 g/dl (32.0-36.0) 02/21/18 18: RDW 16.1 % (11.6-15.6) H 02/21/18 18:17 Plt Count 280 K/MM3 (134-434) 02/21/18 18:17 MPV 8.2 fl (7.5-11.1) 02/21/18 18:17 CMP Sodium 141 mmol/L (136-145) 02/24/18 06:20 Potassium 3.6 mmol/L (3.5-5.1) 02/24/18 06:20 Chloride 106 mmol/L (98-107) 02/24/18 06:20 Carbon Dioxide 26 mmol/L (21-32) 02/24/18 06:20 Anion Gap 9 (8-16) 02/24/18 06:20 BUN 22 mg/dL (7-18) H 02/24/18 06:20 Creatinine 0.7 mg/dL (0.55-1.02) 02/24/18 06:20 Creat Clearance w eGFR > 60 (>60) 02/24/18 06:20 Calcium 8.7 mg/dL (8.5-10.1) 02/24/18 06:20 Total Bilirubin 0.2 mg/dL (0.2-1.0) D 02/24/18 06:20 AST 11 U/L (15-37) L 02/24/18 06:20 ALT 18 U/L (12-78) 02/24/18 06:20 Alkaline Phosphatase 89 U/L (45-117) 02/24/18 06:20 Total Protein 6.7 g/dl (6.4-8.2) 02/24/18 06:20 Albumin 3.3 g/dl (3.4-5.0) L 02/24/18 06:20 - RADIOLOGY CT reviewed, no acute changes noted MRI brain reviewed, L pontine infarct noted Carotid doppler reviewed Echo reviewed Medical Decision Making 57 year old female, with a significant past medical history of HTN, HLD, DM who presents to the emergency department with loss of balance and speech changes two days ago. Patient reports kneeling down by her bed to pray when she suddenly noticed her speech was slow. Patient walked to the bathroom and felt off balance. Patient reports going to sleep and woke up the next morning with slight improvement of her symptoms. Patient was seen at PCP office however was sent to the ED for further evaluation. In the ED, she felt much better, now on the floor and does not have aphasia or dysarthria. MRI brain reviewed, L wilman infarct noted, acute to subacute SHe is not taking her daily ASA and advised her to take it daily for cardiovascular primary prevention. Monitor blood pressure, maintain < 160/90 for now, <130/90 as outpatient Carotid doppler without HD significant stenosis Echo reviewed, normal LV fraction, follow up cardiology rec'd Continue Statin, LDL 57, can continue. Monitor glucose, maintain euglycemic state Medication compliance discussed in detail Likely for outpatient rehab based on minimal deficits Discussed with patient and PCP in detail, discharge planning
--- NOTE | 2018-02-24 09:24 | PN ---
Progress Note, Physician Chief Complaint: Pt sitting in bed No complaints today Dysarthria,balance problem improved No weakness,no headache,no chest pain no swallowing problem neurology consult and cardiology consult appreciated MRI of brain report noted,shows LT acute/subacute pontine lacunar infarct, microvascular ischemic changes,volume loss,no acute ICH carotid doppler shows no stenosis Echo report noted - Current Medication List Current Medications: Active Medications Aspirin (Ecotrin -) 81 mg PO DAILY [facility] Last Admin: 02/23/18 09:27 Dose: 81 mg Atorvastatin Calcium (Lipitor -) 20 mg PO HS [facility] Last Admin: 02/23/18 21:31 Dose: 20 mg Hydrochlorothiazide (Hctz -) 12.5 mg PO DAILY [facility] Last Admin: 02/23/18 09:28 Dose: 12.5 mg Metformin HCl (Glucophage -) 1,000 mg PO BID@0700,1630 [facility] Last Admin: 02/24/18 06:16 Dose: Not Given Metoprolol Succinate (Toprol Xl -) 200 mg PO DAILY [facility] Last Admin: 02/23/18 09:28 Dose: 200 mg Nifedipine (Procardia Xl -) 60 mg PO DAILY [facility] Last Admin: 02/23/18 09:28 Dose: 60 mg Sitagliptin Phosphate (Januvia -) 100 mg PO DAILY@0700 [facility] Last Admin: 02/24/18 06:16 Dose: Not Given Valsartan (Diovan -) 320 mg PO DAILY [facility] Last Admin: 02/23/18 09:28 Dose: 320 mg - Objective Vital Signs: Vital Signs Temperature 97.8 F 02/24/18 08:24 Pulse Rate 71 02/24/18 08:24 Respiratory Rate 18 02/24/18 08:24 Blood Pressure 142/54 02/24/18 08:24 O2 Sat by Pulse Oximetry (%) 97 02/22/18 20:29 Constitutional: Yes: No Distress Eyes: Yes: Conjunctiva Clear HENT: Yes: Atraumatic Neck: Yes: Supple, Trachea Midline Cardiovascular: Yes: Regular Rate and Rhythm Respiratory: Yes: Regular, CTA Bilaterally Gastrointestinal: Yes: Normal Bowel Sounds Musculoskeletal: Yes: WNL Extremities: Yes: WNL Edema: No Peripheral Pulses WNL: No Neurological: Yes: WNL, Alert, Oriented, Cran Nerves II-XII Intact ...Motor Strength: WNL Psychiatric: Yes: WNL Labs: CBC, BMP 02/21/18 18:17 02/24/18 06:20 INR, PTT INR 0.99 (0.82-1.09) 02/21/18 18:17 Assessment/Plan CVA,stroke,Lt pontine stroke Dysarthrea improved Weakness improved DM HTN hypercholestrolemia PLAN D/c home continue home meds cardiology f/u neuro f/u PT ASA F/u with PMD in 1 wk
[2018-02-24] MEDS: HYDROCHLOROTHIAZIDE 12.5 MG CAPSULE (FP) PO SCH (09:32)
--- NOTE | 2018-02-24 10:42 | DS ---
DATE OF ADMISSION: DATE OF DISCHARGE: HISTORY: The patient is a 57-year-old female with a past medical history of hypertension, hyperlipidemia, diabetes admitted with history of dysarthria and balance problem. No headache. At the time of admission, the patient's vitals were stable. Temperature was 98, pulse 71, respiration 18, blood pressure 148/84, and pulse ox 100%. MEDICATIONS: Patient's medications reviewed. Patient was taking metoprolol succinate 200 mg daily at home, Zocor 20 mg, Janumet 50 x 1000 mg daily, aspirin 81 mg daily, Invokana 100 mg daily, Humalog 80 units t.i.d., nifedipine ER 60 mg daily, and valsartan 320 mg daily. PHYSICAL EXAMINATION: General: In the emergency room, alert and oriented x3. Cardiovascular: First and 2nd sounds normal. Abdomen: Soft. No tenderness. No distention. Bowel sounds present. Extremities: No edema. Central Nervous System: Alert and oriented x3. Cranial nerves 2-12 normal. Motor and sensory functions are normal. Romberg sign negative. LABORATORIES: Labs done in the emergency room: CBC was normal. Comprehensive panel shows potassium 3.4, blood sugar 124, sodium 141, BUN 15, creatinine 0.8. Liver function was normal. Cardiac enzymes: Troponin was negative. EKG shows normal sinus rhythm [address] or T-wave changes. X-ray chest: There was no acute infiltrate. CAT scan of the head done in the emergency room shows no bleed and no ___mass lesion__. The patient was admitted to telemetry for monitoring. Seen by Neurology and Cardiology. Patient had MRI of the brain done. Shows left pontine lacunar infarct, chronic microvascular ischemic changes, [id number] volume loss. No mass, lesion, or intracranial hemorrhage. Patient had a carotid Doppler done. There was no stenosis. Echocardiogram done shows left ventricular size, thickness, and function normal. Ejection fraction normal. Left ventricular wall motion normal. Mild DTR. There was trace MR. The patient was stable on the floor. Potassium replacement given. Patient discharged to home in stable condition. Dysarthria, balance problem improved. Recommended to continue aspirin every day and home medication. Follow up with Cardiology and Neurology in 3 weeks. Follow with the primary physician in 1 week. Patient refused outpatient physical therapy. Patient discharged home in a stable condition. Jose Armando [id number]
== END 2018-02-24 14:52 | disposition home or self-care (01) | DRG 66 ==
LOC: JER 17:27 → INTOOBSV 02-22 00:41 → JERBED 02-22 00:41 → J4W 02-22 03:29 → OBSVTOIN 02-23 08:30
PROVIDERS: ADMIT Family Medicine; ATTEND Family Medicine
DX: I63.8 Other cerebral infarction (principal); I10 Essential (primary) hypertension; E11.9 Type 2 diabetes mellitus without complications; E78.5 Hyperlipidemia, unspecified; R29.700 NIHSS score 0; R26.81 Unsteadiness on feet; R47.1 Dysarthria and anarthria
CPT/HCPCS: 36415; 70450-TC; 70551-TC; 71045-TC-FY; 80053; 80061; 82550; 82962; 83721; 84484; 85025; 85610; 93005; 93010; 93306-TC; 93880-TC; 97116-GP; 97161-GP; 99281-25; 99285-25; G0378